=== PATIENT | female | born 1975 | race African-American/Black ===

== ENCOUNTER 2017-09-16 10:40 | Emergency (ER) | payer OTHER ==
--- NOTE | 2017-09-16 11:40 | CT ---
CT HEAD WITHOUT CONTRAST: Date: 09/16/17 Multiple axial tomograms obtained through the head without IV enhancement. HISTORY: Seizure. Comparison made to recent head CT of 09/01/17. FINDINGS: Ventricles remain normal size and position. No evidence of intracranial mass or hemorrhage. No infarc t or edema. Sinuses and mastoids are clear. IMPRESSION: Unremarkable head CT without change from recent exam. POS: [facility]
[2017-09-16 12:00] LABS: Carbamazepine-Tegretol 9.9 ug/mL (4.0-12.0)
[2017-09-16 12:02] LABS: ALT (SGPT) 30 U/L (8-55); AST (SGOT) 38 U/L (5-34); Albumin 4.2 g/dL (3.5-5.0); Alkaline Phosphatase 92 U/L (40-150); Anion Gap 13 mmol/L (10-20); BUN (Urea Nitrogen) 6 mg/dL (7.0-18.7); Bilirubin, Total 0.3 mg/dL (0.2-1.2); Calc. Creatinine Clearance 0 mL/min (70-130); Carbon Dioxide 22 mmol/L (22-29); Estimated GFR-MDRD Greater than 90; Glucose 103 mg/dL (70-105); Potassium 3.7 mmol/L (3.5-5.1); Protein, Total 8.2 g/dL (6.0-8.3); Sodium 140 mmol/L (136-145)
[2017-09-16 12:03] LABS: Chloride 109 mmol/L (98-107)
[2017-09-16 12:09] LABS: Band 2 % (5-11); Hemoglobin 14.1 g/dL (12.0-16.0); Lymphocytes 23 % (21-51); MDiff Complete? YES; Mean Corpuscular HGB CONC 33.2 g/dL (32.0-36.0); Mean Corpuscular Hemoglobin 28.7 pg (27.0-31.0); Mean Corpuscular Volume 86.6 fl (81.0-99.0); Mean Platelet Volume 6.8 fL (7.4-10.4); Monocytes 1 % (0-10); Neutrophil 70 % (42-75); PLT Morphology Comment Appears Adequate; Platelet Count 340 thou/uL (130-400); RBC Distribution Width 12.8 % (11.5-14.5); RBC Morphology Normal; Reactive Lymphocytes 1 % (0-10); Red Blood Cell (RBC) Count 4.92 mill/uL (4.20-5.40); White Blood Cell (WBC) Count 5.7 thou/uL (4.8-10.8)
--- NOTE | 2017-09-16 12:23 | RAD ---
AP VIEW CHEST: INDICATIONS: History of seizure. COMPARISON: 02/14/2013 FINDINGS: The left carotid body stimulator is unchanged. Heart size is at the upper limits of normal. Lungs a re clear. No pleural effusion or pneumothorax is evident. IMPRESSION: No acute cardiopulmonary abnormality. POS: [facility]
== END 2017-09-16 12:50 | disposition home or self-care (01) ==
LOC: ERS 10:40
DX: R56.9 Unspecified convulsions (principal); J45.909 Unspecified asthma, uncomplicated; E78.5 Hyperlipidemia, unspecified; I10 Essential (primary) hypertension; F31.9 Bipolar disorder, unspecified; F41.9 Anxiety disorder, unspecified; Z79.899 Other long term (current) drug therapy
CPT/HCPCS: 36415; 70450; 71045; 80053; 80156; 84146; 85025

== ENCOUNTER 2017-09-27 10:24 | Outpatient (CLI) | payer OTHER | END 2017-09-27 10:25 | disposition home or self-care (01) | LOC: LABBT 10:24 | PROVIDERS: ATTEND Obstetrics & Gynecology | DX: Z01.812 Encounter for preprocedural laboratory examination (principal); N70.11 Chronic salpingitis; N93.8 Other specified abnormal uterine and vaginal bleeding | CPT/HCPCS: 86850; 86900; 86901 ==

== ENCOUNTER 2017-09-29 07:31 | Day surgery (SDC) | payer OTHER ==
[2017-09-27 11:03] VITALS: BMI 39.6
--- NOTE | 2017-09-28 18:07 | HP ---
DATE OF ADMISSION: 09/29/2017 ADMITTING DIAGNOSES: Dysfunctional uterine bleeding, menorrhagia, weight gain, and traumatic brain i njury. SCHEDULED PROCEDURE: Hysteroscopy with D&C and endometrial ablation with bilateral salpingectomy for risk reduction, hydrosalpinx, and history of seizure disorder. HISTORY OF PRESENT ILLNESS: Ms. Mclean is a 42-year-old 0 with a history of TBI, seizures, d ysfunctional uterine bleeding, and obesity. Previously, her dysfunctional uterine bleeding is manage d with Depo-Provera; however, the patient has had significant weight gain, which makes management of her other medical issues and her seizure disorder difficult. The patient desires definitive manageme nt with minimal morbidity of her dysfunctional uterine bleeding. The patient also desires salpingect live as she has a history of hydrosalpinx as well as a family history of ovarian malignancy. OBSTETRIC AND GYNECOLOGIC HISTORY: As noted. No history of STDs. PAST MEDICAL HISTORY: Epilepsy, treated by Dr. Oconnor; asthma; obesity; hypertension; depression; a nd chronic hypertension. PAST SURGICAL HISTORY: None. ALLERGIES: SULFA. MEDICATIONS: Depo-Provera, quetiapine, pravastatin, carbamazepine, levetiracetam, Aricept, vitamin D , albuterol. FAMILY HISTORY: Noncontributory. REVIEW OF SYSTEMS: Noncontributory. PHYSICAL EXAMINATION: GENERAL: Black female in no acute distress. VITAL SIGNS: 5 feet 4 inches, 236, BMI 40, blood pressure 120/80. HEENT: Within normal limits. LUNGS: Clear to auscultation bilaterally. HEART: Regular rhythm. BREASTS: No mass bilaterally. ABDOMEN: Soft, nontender. No rebound or guarding. PELVIC: Vulva without lesions. Vagina without discharge. Cervix nulliparous. Uterus anteverted, 6 weeks, no adnexal masses. EXTREMITIES: Without clubbing, cyanosis, or edema. IMPRESSION: The patient with dysfunctional uterine bleeding, obesity, seizures, complicated by her m enorrhagia, her medications, her weight gain, and a history of hydrosalpinx as well as family history of ovarian malignancy. PLAN: We will proceed with endometrial ablation with hysteroscopy, dilatation and curettage as EMB w as not performed in the office. We will also proceed with laparoscopic bilateral salpingectomy. The patient understands risks and benefits of procedure. We will administer appropriate antibiotic and DVT prophylaxis.
[2017-09-29] MEDS ORDERED: Fentanyl 100 MCG/2 ML VIAL ONE (08:39)
[2017-09-29] MEDS ORDERED: Midazolam HCl 2 mg/2 ml Vial ONE (09:04)
[2017-09-29] MEDS ORDERED: CEFAZOLIN/Water 2 GM/20 ML SYRINGE ONE (09:04)
[2017-09-29] MEDS ORDERED: Bupivacaine HCl 0.5%/Epinephrine 1:200,000/PF 30 ml Vial ONE (09:10)
[2017-09-29] MEDS ORDERED: HYDROcodone/Acetaminophen 5/325 mg Tablet ONE ×2 (11:10→12:03)
[2017-09-29] MEDS ORDERED: Glycopyrrolate 0.2 MG/ML 5 ML SYRINGE ONE (11:23)
[2017-09-29] MEDS ORDERED: Lidocaine 1% PF 5 ML VIAL ONE (11:23)
[2017-09-29] MEDS ORDERED: Ketorolac Tromethamine 30 MG/ML VIAL ONE (11:23)
[2017-09-29] MEDS ORDERED: Ondansetron HCl/PF 4 MG/2 ML Vial ONE (11:23)
[2017-09-29] MEDS ORDERED: PROPOFOL 200 MG/20 ML VIAL ONE (11:23)
--- NOTE | 2017-09-29 12:23 | EKG ---
Test Reason : PREOP Blood Pressure : / mmHG Vent. Rate : 082 BPM Atrial Rate : 082 BPM P-R Int : 148 ms QRS Dur : 080 ms QT Int : 390 ms P-R-T Axes : 063 035 -02 degrees QTc Int : 455 ms Normal sinus rhythm Normal ECG When compared with ECG of 09-JAN-2014 13:13, Nonspecific T wave abnormality no longer evident in Anterior leads Confirmed by VENANCIO SAAB ([id number]) on 09/29/2017 12:22:51 PM Referred By: DAMIR Confirmed By:VENANCIO SAAB
--- NOTE | 2017-09-29 13:04 | OP ---
DATE OF PROCEDURE: 09/29/2017 PREOPERATIVE DIAGNOSES: Dysfunctional uterine bleeding, status post traumatic brain injury, seizure disorder with bilateral recurrent hydrosalpinx. POSTOPERATIVE DIAGNOSES: Dysfunctional uterine bleeding, status post traumatic brain injury, seizure disorder with bilateral recurrent hydrosalpinx and mildly bicornuate uterus. PROCEDURE: Laparoscopic bilateral salpingectomy with D and C hysteroscopy and endometrial ablation w ith Freya. SPECIMENS: 1. Bilateral tubes. 2. Uterine contents. ESTIMATED BLOOD LOSS: Less than 20 mL. DRAINS: Lincoln to gravity. MEDICATIONS: 2 g Ancef preincision. COMPLICATIONS: None. OPERATIVE FINDINGS: 1. Normal-appearing uterus at laparoscopy with bilateral salpingectomy performed with hemostasis. 2. Uterus sounded to 9 cm with a small endometrial cavity with slight bicornuate nature to the giovana l aspect of the uterus with bilateral tubal ostia visualized. 3. No evidence of uterine perforation pre- or post-procedure. 4. Scant uterine curettings after the patient was on Depo-Provera. 5. Counts correct at the end of the procedure. DISPOSITION: To the recovery room in good condition. FLUID DEFICIT: 0 mL with 250 mL normal saline, hysteroscopy. DESCRIPTION OF OPERATIVE PROCEDURE: After obtaining proper informed consent, the patient was taken t o the operating room where general endotracheal anesthesia achieved without difficulty. She was prep ped and draped in the dorsal lithotomy position. Lincoln catheter placed in the bladder and a [place]ka ma nipulator in the uterus. Operative technique discussed. I turned my attention to the abdominal port ion of procedure. A 5 mL of Marcaine injected at the base of the umbilicus, 5 mm skin incision made and a Veress needle placed inside the abdominal cavity. Insufflation carried out with carbon dioxide to a maximum pressure of 15. A 5-mm trocar was introduced and camera showed entry into the peritone al cavity without trauma to underlying viscera. The patient was placed in steep Trendelenburg positi on and a left lateral 5-mm trocar was placed under direct visualization as well as an 8-mm suprapubic midline. Left fallopian tube was mobilized and grasped distally. Mesosalpinx was coagulated, start ing at the level of the distal end, coagulated and transected with the LigaSure and carried to the me sosalpinx up to the level of the insertion of the fallopian tube and the uterus. It was then coagula trevor and transected across and removed the 8-mm trocar. Identical procedure was carried out on the pa tient's right. Good hemostasis noted. Abdomen desufflated of carbon dioxide. Trocars removed x3. Skin reapproximated using 4-0 Monocryl with Dermabond. Legs were rotated up. Sliding speculum place d in the vagina, cervix identified and grasped with tenaculum, sounded to 8-9 cm, dilated up to an ap propriate level for hysteroscopy and Freya ablation. Hysteroscope was introduced with the findings as noted in the operative findings, was removed and curettings were taken and sent for pathologic an alysis. The Freya was set at 4.5 cm, because of the patient's slightly bicornuate fundal area, int roduced and deployed. It immediately deployed into the green zone for width and the cervical operati on balloon was blown up. Cavity integrity test was carried out and revealed an intact cavity x2. Th erapy cycle proceeded in an automatic manner for 120 seconds and the Freya was removed in the presc ribed manner. Hysteroscope was reintroduced, which showed no evidence of perforation and good ablati on including the fundal regions of the uterus. Hysteroscope was removed. Single tooth tenaculum rem krista. No bleeding noted from the cervix. Speculum removed. Lincoln catheter removed. The patient aw akened, extubated and taken to the recovery room in good condition.
== END 2017-09-29 12:30 | disposition home or self-care (01) ==
LOC: SDC 07:31
PROVIDERS: ATTEND Obstetrics & Gynecology
PROC: 0UDB8ZZ Extraction of Endometrium, Via Natural or Artificial Opening Endoscopic (ICD-10-PCS; principal; 2017-09-29)
PROC: 0U5B8ZZ Destruction of Endometrium, Via Natural or Artificial Opening Endoscopic (ICD-10-PCS; principal; 2017-09-29)
PROC: 0UT74ZZ Resection of Bilateral Fallopian Tubes, Percutaneous Endoscopic Approach (ICD-10-PCS; principal; 2017-09-29)
DX: N70.11 Chronic salpingitis (principal); N92.0 Excessive and frequent menstruation with regular cycle; Q51.3 Bicornate uterus; G40.909 Epilepsy, unspecified, not intractable, without status epilepticus; J45.909 Unspecified asthma, uncomplicated; E66.9 Obesity, unspecified; I10 Essential (primary) hypertension; F32.9 Major depressive disorder, single episode, unspecified; Z88.2 Allergy status to sulfonamides; Z88.8 Allergy status to other drugs, medicaments and biological substances; Z79.899 Other long term (current) drug therapy
CPT/HCPCS: 36416; 88302; 88305; 93005; 93010; J0131; J0670; J1885; J2001; J2250; J2405; J2704; J3010

== ENCOUNTER 2018-05-10 13:43 | Outpatient (CLI) | payer OTHER ==
--- NOTE | 2018-05-12 10:00 | MMO ---
DIGITAL SCREENING MAMMOGRAM: Date: 05-12-18 Comparison: 10-13-16 FINDINGS: Bilateral craniocaudal and oblique mediolateral digital screening mammograms demonstrate fibroglandul ar tissues seen in the both breasts. No definite evidence of masses or lesions seen. No evidence of a rchitectural distortion seen. This study is interpreted with the assistance of computer aided detection. IMPRESSION: BIRADS category 1 - negative exam. POS: [facility]
== END 2018-05-10 13:44 | disposition home or self-care (01) ==
LOC: SCSMAMMO 13:43
PROVIDERS: ATTEND Internal Medicine
DX: Z12.31 Encounter for screening mammogram for malignant neoplasm of breast (principal)
CPT/HCPCS: 77067

== ENCOUNTER 2019-06-28 12:32 | Outpatient (CLI) | payer OTHER ==
--- NOTE | 2019-06-28 14:18 | RAD ---
SACROILIAC JOINTS 3 VIEWS: HISTORY: Low back pain, sacroiliitis. FINDINGS/IMPRESSION: No fracture, subluxation, or bony destruction is seen. SI joints have a normal appearance. POS: [facility]
--- NOTE | 2019-06-28 14:18 | RAD ---
LUMBAR SPINE 2 VIEWS: HISTORY: Low back pain without sciatica. FINDINGS/IMPRESSION: There are mild degenerative changes. No fracture, subluxation, or bony destruction is seen. POS: [facility]
== END 2019-06-28 12:33 | disposition home or self-care (01) ==
LOC: BICRAD 12:32
PROVIDERS: ATTEND Internal Medicine
DX: M46.1 Sacroiliitis, not elsewhere classified (principal); M54.5 Low back pain; M47.816 Spondylosis without myelopathy or radiculopathy, lumbar region
CPT/HCPCS: 72100; 72202

== ENCOUNTER 2019-10-05 14:23 | Emergency (ER) | payer OTHER ==
[2019-10-05 14:51] LABS: Bilirubin Negative (Negative); Blood, Urine Negative (Negative); Clarity Clear (Clear); Glucose, Urine (Dipstick) Normal (Negative); Leukocyte Negative Leu/uL (Negative); Nitrite Negative (Negative); Protein, Urine (Dipstick) Negative (Neg-Trace); Urobilinogen Normal mg/dL (Less than 2)
[2019-10-05 15:08] LABS: #Lymphocytes 1.2 thou/uL (1.20-3.40); #Monocytes 0.4 thou/uL (0.11-0.59); #Neutrophils 5.2 thou/uL (1.40-6.50); %Basophils 0.3 % (0.0-1.0); %Eosinophils 0.3 % (0.0-10.0); %Lymphocytes 17.2 % (21.0-51.0); %Monocytes 6.2 % (0.0-10.0); Hemoglobin 15.2 g/dL (12.0-16.0); Mean Corpuscular HGB CONC 32.9 g/dL (32.0-36.0); Mean Corpuscular Hemoglobin 29.4 pg (27.0-31.0); Mean Corpuscular Volume 89.1 fL (78.0-98.0); Mean Platelet Volume 6.8 fL (7.4-10.4); Platelet Count 328 thou/uL (130-400); RBC Distribution Width 12.7 % (11.5-14.5); Red Blood Cell (RBC) Count 5.17 mill/uL (4.20-5.40); White Blood Cell (WBC) Count 6.8 thou/uL (4.8-10.8)
[2019-10-05 15:29] LABS: ALT (SGPT) 28 U/L (8-55); AST (SGOT) 24 U/L (5-34); Albumin 4.3 g/dL (3.5-5.0); Alkaline Phosphatase 100 U/L (40-110); Anion Gap 12 mmol/L (10-20); BUN (Urea Nitrogen) 6 mg/dL (7.0-18.7); Bilirubin, Total Less than 0.2 mg/dL (0.2-1.2); Calc. Creatinine Clearance 0 mL/min (70-130); Calcium 9.7 mg/dL (7.8-10.44); Carbon Dioxide 27 mmol/L (22-29); Chloride 102 mmol/L (98-107); Estimated GFR-MDRD Greater than 90; Globulin 4.1 g/dL (2.4-3.5); Glucose 121 mg/dL (70-105); Potassium 3.8 mmol/L (3.5-5.1); Protein, Total 8.4 g/dL (6.0-8.3); Sodium 137 mmol/L (136-145)
[2019-10-05] MEDS ORDERED: Famotidine/PF 20 mg/2ml Vial ONE ×2 (16:23→16:25)
[2019-10-05] MEDS ORDERED: traMADol HCl 50 MG TAB ONE (16:25)
[2019-10-05 16:29] LABS: Pregnancy Test - Urine (BHCG) Negative (Negative); Pregu Control Background? CLEAR/WHITE (CLR/WHITE); Pregu Control Bar Appear? YES (CONTROL BAR); Specific Gravity 1.014 (1.002-1.036)
== END 2019-10-05 16:58 | disposition home or self-care (01) ==
LOC: ERS 14:23
DX: K59.00 Constipation, unspecified (principal); J45.909 Unspecified asthma, uncomplicated; E78.5 Hyperlipidemia, unspecified; I10 Essential (primary) hypertension; F31.9 Bipolar disorder, unspecified; F41.9 Anxiety disorder, unspecified; Z79.899 Other long term (current) drug therapy
CPT/HCPCS: 36415; 80053; 81003; 81025; 85025; 99284; S0028

== ENCOUNTER 2019-10-08 19:24 | Emergency (ER) | payer OTHER ==
[2019-10-08 20:05] LABS: Bilirubin Negative (Negative); Blood, Urine Negative (Negative); Clarity Turbid (Clear); Glucose, Urine (Dipstick) Normal (Negative); Leukocyte 75 Leu/uL (Negative); Nitrite Negative (Negative); Protein, Urine (Dipstick) Negative (Neg-Trace); RBC/HPF 0-3 HPF (0-3); Urobilinogen Normal mg/dL (Less than 2)
[2019-10-08 20:07] LABS: Bacteria/HPF 1+ HPF (None Seen)
[2019-10-08 20:21] LABS: Pregnancy Test - Urine (BHCG) Negative (Negative); Pregu Control Bar Appear? YES (CONTROL BAR); Specific Gravity 1.021 (1.002-1.036)
[2019-10-08 20:22] LABS: Pregu Control Background? CLEAR/WHITE (CLR/WHITE)
[2019-10-08 20:25] LABS: #Lymphocytes 1.3 thou/uL (1.20-3.40); #Monocytes 0.5 thou/uL (0.11-0.59); #Neutrophils 5.3 thou/uL (1.40-6.50); %Basophils 0.2 % (0.0-1.0); %Eosinophils 0.4 % (0.0-10.0); %Lymphocytes 17.9 % (21.0-51.0); %Neutrophils 74.5 % (42.0-75.0); Hemoglobin 13.1 g/dL (12.0-16.0); Mean Corpuscular HGB CONC 32.4 g/dL (32.0-36.0); Mean Corpuscular Hemoglobin 28.3 pg (27.0-31.0); Mean Corpuscular Volume 87.5 fL (78.0-98.0); Mean Platelet Volume 6.8 fL (7.4-10.4); Platelet Count 332 thou/uL (130-400); RBC Distribution Width 12.6 % (11.5-14.5); Red Blood Cell (RBC) Count 4.61 mill/uL (4.20-5.40); White Blood Cell (WBC) Count 7.2 thou/uL (4.8-10.8)
[2019-10-08 20:48] LABS: ALT (SGPT) 23 U/L (8-55); AST (SGOT) 29 U/L (5-34); Alkaline Phosphatase 91 U/L (40-110); Anion Gap 13 mmol/L (10-20); BUN (Urea Nitrogen) 7 mg/dL (7.0-18.7); Bilirubin, Total Less than 0.2 mg/dL (0.2-1.2); Calc. Creatinine Clearance 0 mL/min (70-130); Calcium 9.3 mg/dL (7.8-10.44); Carbon Dioxide 24 mmol/L (22-29); Chloride 104 mmol/L (98-107); Estimated GFR-MDRD Greater than 90; Globulin 3.5 g/dL (2.4-3.5); Glucose 108 mg/dL (70-105); Potassium 4.1 mmol/L (3.5-5.1); Protein, Total 7.5 g/dL (6.0-8.3); Sodium 137 mmol/L (136-145)
== END 2019-10-08 20:52 | disposition home or self-care (01) ==
LOC: ERS 19:24
DX: R10.30 Lower abdominal pain, unspecified (principal); R10.84 Generalized abdominal pain; E78.5 Hyperlipidemia, unspecified; I10 Essential (primary) hypertension; F31.9 Bipolar disorder, unspecified; F41.9 Anxiety disorder, unspecified; Z79.899 Other long term (current) drug therapy
CPT/HCPCS: 36415; 80053; 81003; 81015; 81025; 85025; 99281

== ENCOUNTER 2019-11-02 05:47 | Outpatient (CLI) | payer OTHER ==
[2019-11-01 16:39] LABS: Hemoglobin 15.4 g/dL (12.0-16.0); Mean Corpuscular HGB CONC 31.7 g/dL (32.0-36.0); Mean Corpuscular Hemoglobin 28.3 pg (27.0-31.0); Mean Corpuscular Volume 89.4 fL (78.0-98.0); Platelet Count 290 thou/uL (130-400); RBC Distribution Width 12.7 % (11.5-14.5); Red Blood Cell (RBC) Count 5.43 mill/uL (4.20-5.40); White Blood Cell (WBC) Count 5.1 thou/uL (4.8-10.8)
[2019-11-01 16:42] LABS: BHCG - Serum Negative (NEGATIVE); Pregs Control Background? CLEAR/WHITE (CLR/WHITE); Pregs Control Bar Appear? YES (CONTROL BAR)
[2019-11-02 13:27] LABS: SARS-CoV-2 MS2 Positive; SARS-CoV-2 N Gene Negative; SARS-CoV-2 S Gene Negative; SARS-CoV-2 orf1ab Negative
== END 2019-11-02 05:48 | disposition home or self-care (01) ==
LOC: LABBT 05:47
PROVIDERS: ATTEND Obstetrics & Gynecology
DX: Z01.812 Encounter for preprocedural laboratory examination (principal); Z11.59 Encounter for screening for other viral diseases; N99.85 Post endometrial ablation syndrome; R10.2 Pelvic and perineal pain
CPT/HCPCS: 84703; 85027; 86850; 86900; 86901; 87635; U0003

== ENCOUNTER 2019-11-07 05:37 | Day surgery (SDC) | payer OTHER ==
[2019-11-01 11:40] VITALS: BMI 40.3
--- NOTE | 2019-11-07 06:16 | HP ---
REASON FOR ADMISSION: Menorrhagia, dysmenorrhea, postablation syndrome. HISTORY OF PRESENT ILLNESS: Ms. Mclean is a 44-year-old nulligravida patient who has seen me at [facility] for approximately 20 years. She is complicated by a history of TBI and seizures with decreased mental capacity, however, the patient is responsible for herself. She has had problems with dysmenorrhea and menorrhagia in the past and underwent an endometrial ablation and now has postablation syndrome. She and her mother both desire definitive surgical management. BIOMEDICAL ENGINEERING AIDE HISTORY: As noted. No history of dysplasia. PAST MEDICAL HISTORY: Hypertension, depression, anxiety, and seizure disorder post TBI. SURGICAL HISTORY: Significant for endometrial ablation and bilateral salpingectomy. ALLERGIES: SULFA. MEDICATIONS: Include: 1. Albuterol. 2. Carbamazepine. 3. Ibuprofen. 4. Levetiracetam. 5. Metoprolol. SOCIAL HISTORY: Denies tobacco, alcohol, or IV drug use. FAMILY HISTORY: Noncontributory. REVIEW OF SYSTEMS: Noncontributory. PHYSICAL EXAMINATION: GENERAL: Black female, 5 feet and 4 inches, 232, and BMI 39.8. HEENT: Within normal limits. LUNGS: Clear to auscultation bilaterally. HEART: Regular rhythm. BREASTS: No masses bilaterally. ABDOMEN: Soft, nontender. No rebound or guarding. GENITOURINARY: Vulva, without lesions. Vagina, without discharge. Cervix, nulliparous. Uterus, anteverted, 6 to 8 week size. Uterus is slightly boggy and tender. Adnexa, no masses bilaterally. EXTREMITIES: No clubbing, cyanosis, or edema. IMAGING: Ultrasound reveals a uterus measuring 7 x 5 x 4 cm, 9 mm endometrial thickness. There is a fluid-filled endometrium status post ablation consistent with postablation syndrome and a small fibroid on the lining of the lower uterine segment measuring 1.1 cm in greatest diameter. No adnexal masses noted. IMPRESSION: Postablation syndrome with chronic pelvic pain. PLAN: Discussed with the patient and her mother the options. We will proceed with total laparoscopic hysterectomy, bilateral salpingectomy of any tubal remnant remaining. Patient understands risks and benefits of the procedure. We will administer appropriate antibiotic and DVT prophylaxis. Job ID: [id number]
[2019-11-07] MEDS ORDERED: Gabapentin 300 MG CAP ONE (06:33)
[2019-11-07] MEDS ORDERED: CeleCOXIB 100 MG CAP ONE (06:33)
[2019-11-07] MEDS ORDERED: Famotidine/PF 20 mg/2ml Vial ONE (06:33)
[2019-11-07] MEDS ORDERED: Bupivacaine PF 0.5% 30 ML VIAL ONE (06:53)
[2019-11-07] MEDS ORDERED: Lidocaine 2% w/Epinephrine 1:200K 20 ML VIAL ONE (06:53)
[2019-11-07] MEDS ORDERED: Lidocaine 1% w/Epinephrine 1:100K 20 ML VIAL ONE (06:53)
[2019-11-07] MEDS ORDERED: Fentanyl 250 MCG/5 ML VIAL ONE (06:59)
[2019-11-07] MEDS ORDERED: Sodium Chloride 0.9% 20 ML ONE (08:49)
[2019-11-07] MEDS ORDERED: HYDROmorphone 2 MG/ML VIAL SLOW IVP PRN (09:48)
[2019-11-07] MEDS ORDERED: Ondansetron HCl/PF 4 MG/2 ML Vial IVP PRN (09:48)
[2019-11-07] MEDS ORDERED: Promethazine HCl 25 MG/ML VIAL SLOW IVP PRN (09:48)
[2019-11-07] MEDS ORDERED: Simethicone Chewable 80 MG TAB PO PRN (10:37)
[2019-11-07] MEDS ORDERED: Morphine 4 MG/ML VIAL SLOW IVP PRN (10:37)
[2019-11-07] MEDS ORDERED: Ondansetron PF 4 MG/2 ML Vial IVP PRN (10:37)
[2019-11-07] MEDS ORDERED: Promethazine HCl 25 MG/ML VIAL IM PRN (10:37)
[2019-11-07] MEDS ORDERED: diphenhydrAMINE 25 MG CAP PO PRN (10:37)
[2019-11-07] MEDS ORDERED: HYDROcodone/Acetaminophen 5/325 mg Tablet PO PRN (10:37)
[2019-11-07] MEDS ORDERED: Acetaminophen 325 MG TAB PO PRN (10:37)
[2019-11-07] MEDS ORDERED: Fentanyl 100 MCG/2 ML VIAL ONE (11:09)
--- NOTE | 2019-11-07 11:20 | RAD ---
EXAM: Single view of the chest HISTORY: Central venous catheter placement COMPARISON: 03/08/2011 FINDINGS: Single view of the chest shows a normal sized cardiomediastinal silhouette. A left IJ cent ral venous catheter seen with its tip in the superior vena cava. No pneumothorax is seen. A vagal stimulator is seen on the left. There is no evidence of consolidation, mass, or pleural effusion. Th e bones are unremarkable IMPRESSION: Status post central line placement without evidence of complication.
[2019-11-07] MEDS ORDERED: Morphine 4 MG/ML VIAL ONE (11:28)
[2019-11-07] MEDS ORDERED: hydrALAZINE 20 MG/ML VIAL ONE (11:35)
[2019-11-07] MEDS ORDERED: Morphine 2 MG/ML VIAL ONE (11:45)
--- NOTE | 2019-11-07 12:19 | OP ---
DATE OF PROCEDURE: 11/07/2019 PREOPERATIVE DIAGNOSIS: Post ablation syndrome, pelvic pain. POSTOPERATIVE DIAGNOSIS: Post ablation syndrome, pelvic pain. PROCEDURES PERFORMED: Total laparoscopic hysterectomy. INDUSTRIAL STAFF NURSE: Barb Butler PA-C ANESTHESIA: General endotracheal. ESTIMATED BLOOD LOSS: 25 mL. DRAINS: Lincoln to gravity, 200 mL clear urine. FINDINGS: 1. Status post bilateral salpingectomy. 2. Obvious post ablation syndrome with significant amount of menstrual flow with dilatation of the cervix. 3. Uterus consistent with adenomyosis. 4. Hemostasis clear urine. COUNTS: Correct at the end of the procedure. DISPOSITION: Recovery room in good condition. DESCRIPTION OF PROCEDURE: After obtaining proper informed consent, patient was taken to the operating room. IV access was difficult and anesthesia ended up proceeding with an internal jugular central line. The patient was prepped and draped in the usual manner. Cervix identified, grasped with single-tooth tenaculum. It sounded to 7 cm. 3.5 public works laborer and 6 cm roomy obturator were placed without difficulty. Lincoln catheter placed. Clear urine noted. Security Public Safety Officer changed his gloves and turned attention to abdominal portion of the procedure. A 5 mL of Marcaine injected in the superior aspect of the umbilicus. A 12 mm skin incision made. Veress needle placed in the abdominal cavity. Insufflation was carried out with carbon dioxide for a maximum pressure of 15, volume approximately 3.5 L. A 12 mm [place] trocar was placed without difficulty. The operative findings were noted. The patient was placed in steep Trendelenburg position. Right and left lateral da Chikis robot acute care nursing assistant ports were placed as well as an acute care nursing assistant port in the right upper quadrant. Da Chikis robot was docked with monopolar scissors in the right hand and bipolar fenestrated forceps in the left. The patient was noted to be status post bilateral salpingectomy. The utero-ovarian on the left was coagulated and transected through the broad and round down to the level of the internal cervical os. Vesicouterine peritoneum incised sharply, dissected off sharply off the lower uterine segment, cervix and upper vagina. Attention was turned to the right side where identical procedure was carried out. Once this was done, bladder was insufflated to delineate it and was noted to be well off the cervix and upper vagina. Skeletonization of the uterine vessels carried out bilaterally were coagulated and transected using the bipolar cautery and monopolar scissors. Once this was done, the vagina was entered anteriorly at 12 o'clock and extended from 12 to 3 and 12 to 9 and then from 9 to 6 and 3 to 6 amputating the specimen in its entirety. The specimen was pulled out through the vagina. No lacerations of the vagina were noted. Good hemostasis noted along the cuff. The cuff was closed using a running continuous 2-0 Stratafix suture from right to left and then back to the left in my usual two layer technique. Ureters were noted to be well lateral to the surgical field. Suction irrigation carried out. Good hemostasis noted. Tisseel applied across all surgical pedicles. Da Chikis undocked after removing instruments. The patient levelled. Abdomen desufflated of carbon dioxide. All trocars removed. Fascia reapproximated at the supraumbilical aspect using 0 Vicryl in a UR5 needle and skin reapproximated x4 using 4-0 Monocryl and Dermabond. The vagina was inspected, noted to be dry. The patient was awakened, extubated, and taken to recovery room in good condition. Job ID: [id number]
[2019-11-07] MEDS ORDERED: Albuterol Sulfate 2.5 mg/3 ml Neb NEB PRN (12:45)
[2019-11-07] MEDS ORDERED: Glycopyrrolate 0.2 MG/ML 5 ML SYRINGE ONE (13:51)
[2019-11-07] MEDS ORDERED: Rocuronium Bromide 10 MG/ML (10ML VIAL) ONE (13:51)
[2019-11-07] MEDS ORDERED: PROPOFOL 200 MG/20 ML VIAL ONE (13:51)
[2019-11-07] MEDS ORDERED: Lidocaine 1% PF 5 ML VIAL ONE (13:51)
[2019-11-07] MEDS ORDERED: Dexamethasone 20 MG/5 ML VIAL ONE (13:51)
[2019-11-07] MEDS ORDERED: Ondansetron PF 4 MG/2 ML Vial ONE (13:51)
[2019-11-07] MEDS: Ketorolac Tromethamine 30 MG/ML VIAL IVP SCH ×2 (13:59→20:04)
[2019-11-07] MEDS: cloNIDine 0.1 MG TAB PO PRN ×2 (15:44→17:13)
[2019-11-07] MEDS: Sodium Chloride 0.9% 1,000 ML IV SCH (17:06)
[2019-11-07] MEDS ORDERED: Atorvastatin Calcium 10 MG TAB PO SCH (21:00)
[2019-11-07] MEDS: Metoprolol Tartrate 25 MG TAB PO SCH (21:58)
[2019-11-07] MEDS: Docusate 100 MG CAP PO SCH (21:58)
[2019-11-07] MEDS: levETIRAcetam 500 MG TAB PO SCH (21:59)
[2019-11-07] MEDS: carBAMazepine 200 MG TAB PO SCH (22:01)
[2019-11-07] MEDS: Lacosamide 50 mg Tablet PO SCH (22:04)
[2019-11-08] MEDS: HYDROcodone/Acetaminophen 5/325 mg Tablet PO PRN ×2 (00:29→08:06)
[2019-11-08] MEDS: Sodium Chloride 0.9% 1,000 ML IV SCH ×3 (02:30→08:08)
[2019-11-08] MEDS: Ketorolac Tromethamine 30 MG/ML VIAL IVP SCH (02:30)
[2019-11-08] MEDS ORDERED: Ibuprofen 800 MG TAB PO SCH ×2 (06:00→10:00)
[2019-11-08 06:24] LABS: Hemoglobin 13.4 g/dL (12.0-16.0); Mean Corpuscular HGB CONC 32.7 g/dL (32.0-36.0); Mean Corpuscular Hemoglobin 29.3 pg (27.0-31.0); Mean Corpuscular Volume 89.8 fL (78.0-98.0); Mean Platelet Volume 6.8 fL (7.4-10.4); Platelet Count 281 thou/uL (130-400); RBC Distribution Width 12.5 % (11.5-14.5); Red Blood Cell (RBC) Count 4.58 mill/uL (4.20-5.40); White Blood Cell (WBC) Count 7.4 thou/uL (4.8-10.8)
[2019-11-08] MEDS: Metoprolol Tartrate 25 MG TAB PO SCH (08:06)
[2019-11-08] MEDS: Docusate 100 MG CAP PO SCH (08:06)
[2019-11-08 08:20] VITALS: BP 154/90; TEMP 98.6
[2019-11-08] MEDS: levETIRAcetam 500 MG TAB PO SCH (08:32)
[2019-11-08] MEDS: carBAMazepine 200 MG TAB PO SCH (08:32)
[2019-11-08] MEDS: Lacosamide 50 mg Tablet PO SCH ×2 (08:33→09:13)
[2019-11-08] MEDS ORDERED: Cholecalciferol 1,000 UNITS (25 MCG) TAB PO SCH (09:00)
[2019-11-08] MEDS ORDERED: Multivit, Therapeutic 1 TAB PO SCH (09:00)
--- NOTE | 2019-11-08 12:18 | DIS ---
DATE OF ADMISSION: 11/07/2019 DATE OF DISCHARGE: 11/08/2019 TIME OF SERVICE: 0830 hours. The patient is approximately 23 hours post total laparoscopic hysterectomy. She has no complaints and is eating well. PHYSICAL EXAMINATION: VITAL SIGNS: Temperature 98.6, pulse 76, respirations 20, blood pressures between 133 to 154 systolic over 72 to 90s diastolic. This appears to be the patient's baseline. LUNGS: Clear to auscultation bilaterally. HEART: Regular rate and rhythm. ABDOMEN: Soft and nontender. Bowel sounds in all 4 quadrants. No distention. Incision is intact and dry. Perineum dry. EXTREMITIES: Without clubbing, cyanosis, or edema. LABORATORY DATA: Postop hematocrit 41%. Pathology pending. IMPRESSION: Doing well status post total laparoscopic hysterectomy. PLAN: Discharge home. Discontinue central line. Follow up at [facility] [place] as previously scheduled. The patient received [place] and ibuprofen prescription from the office. Job ID: [id number]
== END 2019-11-08 10:38 | disposition home or self-care (01) ==
LOC: SDC 05:37 → 3SW 11:04 → 3SE 19:54 → SDC 11-08 10:38
PROVIDERS: ATTEND Obstetrics & Gynecology
PROC: 0UT94ZZ Resection of Uterus, Percutaneous Endoscopic Approach (ICD-10-PCS; principal; 2019-11-07)
DX: N99.85 Post endometrial ablation syndrome (principal); N80.0 Endometriosis of uterus; N88.8 Other specified noninflammatory disorders of cervix uteri; D25.9 Leiomyoma of uterus, unspecified; G89.29 Other chronic pain; R10.2 Pelvic and perineal pain; I10 Essential (primary) hypertension; F32.9 Major depressive disorder, single episode, unspecified; F41.9 Anxiety disorder, unspecified; G40.909 Epilepsy, unspecified, not intractable, without status epilepticus; Z87.820 Personal history of traumatic brain injury; Z79.899 Other long term (current) drug therapy; Z88.2 Allergy status to sulfonamides; Z91.011 Allergy to milk products; Z91.018 Allergy to other foods
CPT/HCPCS: 36415; 71045; 85027; 88307; 93005; 93010; J0360; J0690; J1100; J1885; J2270; J2405; J2704; J3010; S0020; S0028

== ENCOUNTER 2021-02-17 13:21 | Outpatient (CLI) | payer OTHER ==
[2021-02-18 00:09] LABS: SARS-CoV-2 PCR by NAA Not Detected (NotDetected)
== END 2021-02-17 13:22 | disposition home or self-care (01) ==
LOC: LABBT 13:21
PROVIDERS: ATTEND Internal Medicine Gastroenterology
DX: Z01.812 Encounter for preprocedural laboratory examination (principal); Z20.822 Contact with and (suspected) exposure to COVID-19
CPT/HCPCS: U0003; U0005

== ENCOUNTER 2021-02-20 11:28 | Day surgery (SDC) | payer OTHER ==
[2021-02-19 15:38] VITALS: BMI 41.1
[2021-02-20] MEDS ORDERED: Sodium Chloride 0.9% 30 ML ONE (14:00)
[2021-02-20] MEDS ORDERED: PROPOFOL 200 MG/20 ML VIAL ONE (14:25)
[2021-02-20] MEDS ORDERED: Lidocaine 1% PF 5 ML VIAL ONE (14:25)
== END 2021-02-20 16:00 | disposition home or self-care (01) ==
LOC: SDC 11:28
PROVIDERS: ATTEND Internal Medicine Gastroenterology
PROC: 0DBN8ZX Excision of Sigmoid Colon, Via Natural or Artificial Opening Endoscopic, Diagnostic (ICD-10-PCS; principal; 2021-02-20)
DX: D12.5 Benign neoplasm of sigmoid colon (principal); K64.8 Other hemorrhoids; K62.5 Hemorrhage of anus and rectum; G40.909 Epilepsy, unspecified, not intractable, without status epilepticus; F79 Unspecified intellectual disabilities; E66.3 Overweight; Z68.41 Body mass index [BMI] 40.0-44.9, adult; Z83.71 Family history of colonic polyps; Z79.899 Other long term (current) drug therapy; Z88.2 Allergy status to sulfonamides; Z91.011 Allergy to milk products; Z91.018 Allergy to other foods
CPT/HCPCS: 71045; 88305; J2704

== ENCOUNTER 2021-09-12 10:58 | Emergency (ER) | payer OTHER ==
[2021-09-12] MEDS ORDERED: Ibuprofen 200 MG TAB ONE (11:37)
== END 2021-09-12 13:00 | disposition home or self-care (01) ==
LOC: ERS 10:58
DX: S62.650A Nondisplaced fracture of middle phalanx of right index finger, initial encounter for closed fracture (principal); W22.09XA Striking against other stationary object, initial encounter; J45.909 Unspecified asthma, uncomplicated; I10 Essential (primary) hypertension; E78.5 Hyperlipidemia, unspecified

== ENCOUNTER 2022-05-18 12:26 | Outpatient (CLI) | payer OTHER | END 2022-05-18 12:27 | disposition home or self-care (01) | LOC: EEG 12:26 | PROVIDERS: ATTEND Psychiatry & Neurology Neurology | DX: G40.209 Localization-related (focal) (partial) symptomatic epilepsy and epileptic syndromes with complex partial seizures, not intractable, without status epilepticus (principal) | CPT/HCPCS: 95816; 95957 ==

== ENCOUNTER 2022-07-20 12:56 | Outpatient (CLI) | payer OTHER | END 2022-07-20 12:57 | disposition home or self-care (01) | LOC: EEG 12:56 | PROVIDERS: ATTEND Psychiatry & Neurology Neurology | DX: G40.209 Localization-related (focal) (partial) symptomatic epilepsy and epileptic syndromes with complex partial seizures, not intractable, without status epilepticus (principal) | CPT/HCPCS: 95816; 95957 ==

== ENCOUNTER 2023-03-23 10:01 | Outpatient (CLI) | payer OTHER | END 2023-03-23 10:02 | disposition home or self-care (01) | LOC: BICMAMMO 10:01 | PROVIDERS: ATTEND Internal Medicine | DX: Z12.31 Encounter for screening mammogram for malignant neoplasm of breast (principal); Z80.3 Family history of malignant neoplasm of breast | CPT/HCPCS: 77067 ==

== ENCOUNTER 2024-03-24 09:26 | Outpatient (CLI) | payer OTHER | END 2024-03-24 09:27 | disposition home or self-care (01) | LOC: BICMAMMO 09:26 | PROVIDERS: ATTEND Internal Medicine | DX: Z12.31 Encounter for screening mammogram for malignant neoplasm of breast (principal); Z80.3 Family history of malignant neoplasm of breast | CPT/HCPCS: 77067 ==

== ENCOUNTER 2024-05-29 15:58 | Outpatient (CLI) | payer OTHER | END 2024-05-29 15:59 | disposition home or self-care (01) | LOC: BICRAD 15:58 | PROVIDERS: ATTEND Internal Medicine | DX: R07.81 Pleurodynia (principal) ==